=== PATIENT | male | born 1925 | race Caucasian/White ===

== ENCOUNTER 2017-11-19 14:37 | Outpatient (CLI) | payer MEDICARE ==
[~2017-11-19 14:37] MED LIST: APIX2.5T PO; ASCORBIC ACID PO; ASPI-611 PO; CALCIUM PO; FAMO20TA8 PO; LISI10TA4 PO; MULT-342 PO; POTA10TA10 PO; RUTI1TAB2 PO; SIMV20TA5 PO; SOTA80TA PO; VITAMIN E PO; fish oil PO
== END 2017-11-19 23:59 | disposition home or self-care (01) ==
LOC: RAD 14:37
PROVIDERS: ATTEND Internal Medicine Cardiovascular Disease
DX: J81.1 Chronic pulmonary edema (principal); J90 Pleural effusion, not elsewhere classified; I51.7 Cardiomegaly; R91.8 Other nonspecific abnormal finding of lung field; I10 Essential (primary) hypertension; F17.200 Nicotine dependence, unspecified, uncomplicated; Z85.828 Personal history of other malignant neoplasm of skin
CPT/HCPCS: 71020